=== PATIENT | male | born 1940 | race Caucasian/White ===

== ENCOUNTER → 2016-07-22 | Outpatient (CLI) | payer MEDICARE, BC ==
--- NOTE | 2016-07-22 15:35 | CT ---
EXAM DESCRIPTION: Chest w/Contrast CLINICAL HISTORY: 75 years, Male, PULMONARY NODULE COMPARISON: December 11, 2015 TECHNIQUE: Thin-section axial CT images are obtained during rapid bolus administration of nonionic IV contrast media. Reconstructed MPR images are created and reviewed as well. This exam was performed according to our departmental dose-optimization program, which includes automated exposure control, adjustment of the mA and/or kV according to patient size and/or use of iterative reconstruction technique. FINDINGS: Follow-up examination with contrast enhancement shows a stable appearance of the right lung with a persistent 7 mm upper lobe nodule with an adjacent 2 mm anteriorly positioned right middle lobe nodule. Two additional tiny right lower lobe pulmonary nodule subpleural at the posterior lung base in retrospect are unchanged from prior study. 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 No new pulmonary nodules or dominant masses or acute inflammatory changes are evident. Mild subpleural atelectatic or scarring changes at the posterior lung bases is evident. Moderate retrocardiac hiatal hernia is present. Small shotty middle mediastinal lymphadenopathy and aorticopulmonary window lymphadenopathy is unchanged from previous December examination and nonspecific. Heart size is normal without pericardial effusion and no specific abnormality in the upper abdomen is noted. Moderate levoscoliosis and degenerative changes within the spine are noted. Axillary regions are unremarkable. No bony destructive changes are seen. IMPRESSION: 1. Stable 7 mm nodule right upper lobe anteriorly, unchanged from prior study. Additional small nodules in the right middle and right lower lobe are 2 mm or less and no new abnormalities are noted. 2. Shotty middle mediastinal lymphadenopathy essentially stable and unchanged from prior study. 3. Moderately large hiatal hernia and degenerative changes and scoliosis of the lumbar spine. Electronically signed by: Brandon James MD 07/22/2016 3:35 PM CDT
== END | disposition home or self-care (01) ==
LOC: CT 07:54
PROVIDERS: ATTEND Family Medicine
DX: R91.1 Solitary pulmonary nodule (principal)

== ENCOUNTER → 2016-08-26 | Outpatient (CLI) | payer MEDICARE, BC | END | disposition home or self-care (01) | LOC: GMAB 10:46 | PROVIDERS: ATTEND Family Medicine | DX: Z12.5 Encounter for screening for malignant neoplasm of prostate (principal); I10 Essential (primary) hypertension | CPT/HCPCS: 84443; G0103 ==

== ENCOUNTER → 2016-12-16 | Outpatient (CLI) | payer MEDICARE, BC ==
--- NOTE | 2016-12-16 09:24 | RAD ---
EXAM DESCRIPTION: Ankle,Right 3 Views CLINICAL HISTORY: 76 years, Male, CLOSED FX OF DISTAL FIBULA COMPARISON: FINDINGS: Osteopenia bones. Transverse fracture distal tibia metaphysis region about 2 cm above the ankle joint. No significant displacement. Some sclerosis around the fracture indicating ongoing healing. Additionally impacted fracture distal fibula about 3.4 cm from the tip. Slight lateral subluxation. Some periosteal reaction around the fracture laterally and posteriorly. Old avulsion injury of the lateral malleolus present about 3.5 mm. Soft tissue swelling laterally around the ankle. Large plantar heel spur. Some calcification of the plantar fascia also noted. IMPRESSION: Healing fractures of the distal tibia and fibula without significant displacement. Continued follow-up recommended. Electronically signed by: Oscar Bobo MD 12/16/2016 9:22 AM CDT
== END | disposition home or self-care (01) ==
LOC: RAD 07:55
PROVIDERS: ATTEND Orthopaedic Surgery
DX: S89.391D Other physeal fracture of lower end of right fibula, subsequent encounter for fracture with routine healing (principal); X58.XXXA Exposure to other specified factors, initial encounter

== ENCOUNTER → 2017-01-13 | Outpatient (CLI) | payer MEDICARE, BC ==
--- NOTE | 2017-01-14 06:39 | RAD ---
Procedure: 3 View right Ankle Exam date: 01/13/2017 7:56 AM [facility] Ordering: SCOUT BERTRAND Clinical Indication: Ankle fracture Comparison: 12/16/2016 FINDINGS: Diffuse osteopenia. Continued osseous healing of the distal right tibial and fibular fracture with callus formation. Thin fracture cleft still remains. No new fractures or subluxations. There is mild lateral angulation of the distal fracture fragments. No soft tissue abnormality. IMPRESSION: 1. Continued healing fractures of the distal right tibia and fibula without other new fracture or significant change. Electronically signed by: Malcom Joshi MD 01/14/2017 6:37 AM [facility]
== END | disposition home or self-care (01) ==
LOC: RAD 07:55
PROVIDERS: ATTEND Orthopaedic Surgery
DX: S89.391D Other physeal fracture of lower end of right fibula, subsequent encounter for fracture with routine healing (principal)

== ENCOUNTER → 2017-05-11 | Outpatient (CLI) | payer MEDICARE | LOC: GMAB 14:42 | PROVIDERS: ATTEND Family Medicine | DX: M25.531 Pain in right wrist (principal) ==

== ENCOUNTER → 2017-09-19 | Outpatient (CLI) | payer MEDICARE | LOC: GMAE 12:02 | PROVIDERS: ATTEND Family Medicine | DX: I10 Essential (primary) hypertension (principal) ==

== ENCOUNTER → 2017-12-14 | Outpatient (CLI) | payer MEDICARE ==
--- NOTE | 2017-12-14 10:58 | MRI ---
MRI arthrogram right shoulder INDICATION: Shoulder pain bursitis initial encounter TECHNIQUE: MR arthrogram sequences right shoulder following gadolinium arthrography FINDINGS: There is medial dislocation long head bicep into the interstitium of the subscapularis. Extensive delaminating subscapularis tear related to this. Mild AC joint osteoarthrosis with os acromiale. Mild edema at the interface of the os. Full-thickness retracted tear supraspinatus tendon retracted to the mid humeral head level. Diffuse bursal contrast extension Mild diffuse degeneration glenoid labrum with mild glenohumeral osteoarthrosis. Chondral thinning in the inferior glenohumeral joint grade 3-4. Mild synovitis/debris in the axillary recess. Thinning and chronic partial tear of the infraspinatus with mild edema in the posterior lateral humerus bare area. Generalized muscle atrophy up to grade 4 in the subscapularis with grade 2-3 changes supraspinatus and infraspinatus IMPRESSION: Full-thickness retracted tear supraspinatus tendon retracted to the mid humeral head level High-grade delaminating tear subscapularis with medial dislocation long head bicep interstitial Chronic partial tear infraspinatus Os acromiale and mild AC joint osteoarthrosis. Generalized muscle atrophy up to grade 4 subscapularis Labral degeneration and mild glenohumeral osteoarthrosis Electronically signed by: Wali Hernandez MD 12/14/2017 10:56 AM CDT
--- NOTE | 2017-12-14 21:56 | RAD ---
EXAM DESCRIPTION: Arthrogram Shoulder Right: RF. CLINICAL HISTORY: BURSITIS COMPARISON: Post-arthrogram MRI scan of the right shoulder same date. TECHNIQUE: The procedure was explained to the patient with risks and benefits. The patient gave verbal and written consent. Patient supine on the fluoroscopic table with right shoulder in external rotation. The anterior mid superior right glenohumeral joint was localized by fluoroscopy. The skin was marked, then prepped and draped in a sterile fashion. 1% xylocaine, given intradermally and intramuscularly. 5 cc of nonionic contrast was prepared in a syringe. A mixture of 10 cc nonionic contrast, 10 cc of sterile normal saline and 0.1% gadolinium was prepared in a second syringe. A 3-cm, 25-ga. needle was introduced into the anterior superior right glenohumeral joint capsule under fluoroscopic visualization. A test injection of right cc of the contrast only was performed under fluoroscopy. Additional 8 cc of the contrast mixture was then injected under fluoroscopy. The patient tolerated the procedure well. Passive exercise was performed. Patient was transferred to the high field MRI suite for multiplanar imaging. No immediate complications. Fluoroscopy time was 0.6. DAP less than 1.6 Gy-cm2. Single frontal image of the right shoulder in external rotation was obtained. IMPRESSION: Successful, fluoroscopic-guided arthrogram of the right shoulder prior to MRI scan. No complications. Permanent images from this procedure are maintained in the patient's medical record. Electronically signed by: Bassem Leach MD 12/14/2017 9:54 PM CDT
== END ==
LOC: MRI 09:00
PROVIDERS: ATTEND Family Medicine
DX: M75.51 Bursitis of right shoulder (principal); S46.011A Strain of muscle(s) and tendon(s) of the rotator cuff of right shoulder, initial encounter; M19.011 Primary osteoarthritis, right shoulder

== ENCOUNTER 2018-05-05 16:42 | Emergency (ER) | payer MEDICARE ==
[2018-05-05] MEDS ORDERED: SODIUM CHLORIDE 0.9% 1000ML 1,000 ML IVS PRN (17:43)
--- NOTE | 2018-05-05 17:44 | ED.PDOC ---
History of Present Illness - General Chief Complaint: General Stated Complaint: Weakness w/vomiting and diarrhea Time Seen by Provider: 05/05/18 17:41 Source: patient Exam Limitations: no limitations - History of Present Illness Initial Comments: Salvador Conn 77 y/o male stated that she had 3 loose watery stool with vomiti.ng this morning and had been feeling weak.No blood in stool.No ill contact no recent antibiotic use.On arrival at ER no vomiting noted. Timing/Duration: 4-6 hours Severity: moderate Improving Factors: nothing Worsening Factors: nothing Associated Symptoms: other - see hpi Allergies/Adverse Reactions: Allergies NO KNOWN ALLERGY Allergy (Verified 06/24/12 13:41) Home Medications: Ambulatory Orders Atorvastatin Calcium [Lipitor] 10 mg PO DAILY 08/01/13 Fexofenadine-Pseudoephedrine [Stefanie-D 24 Hour Allergy 180-240 mg] 1 tab PO DAILY 08/01/13 Finasteride [Proscar] 5 mg PO DAILY 08/01/13 Lisinopril & Hydrochlorothiazi [Lisinopril/Hydrochlorothi 10-12.5 mg] 1 tab PO DAILY 08/01/13 Meloxicam [Mobic] 7.5 mg PO DAILY 08/01/13 Metoprolol Tartrate [Lopressor] 50 mg PO TID 08/01/13 Mometasone Furoate Nasal [place] [Nasonex Nasal [place]] 17 gm SHANTELL DAILY 08/01/13 Terazosin [Hytrin] 5 mg PO DAILY 08/01/13 Tramadol HCl 50 mg PO PRN 08/01/13 Review of Systems - Review of Systems EENTM: States: no symptoms reported Respiratory: States: no symptoms reported Cardiology: States: no symptoms reported Gastrointestinal/Abdominal: States: see HPI, diarrhea, vomiting Genitourinary: States: no symptoms reported Skin: States: no symptoms reported Neurological: States: no symptoms reported Endocrine: States: no symptoms reported Past Medical History (General) - Patient Medical History Hx Stroke: No Hx Asthma: No - Seasonal allergies; does use a CPAP at night for sleep apnea Hx Congestive Heart Failure: No Hx Hypertension: Yes Hx Diabetes: No Hx Cancer: Yes - Peyrones disease Surgical History: cholecystectomy, other - c-spine - Vaccination History Hx Influenza Vaccination: Yes - 2018 Hx Pneumococcal Vaccination: Yes Immunizations Up to Date: Yes - Social History Hx Tobacco Use: Yes - Quit 1974 Hx Alcohol Use: No Hx Substance Use: No Hx Physical Abuse: No Hx Emotional Abuse: No - Activities of Daily Living Patient Lives Alone: No Grooming Ability: Independent Eating (Feeding) Ability: Independent Toileting Ability: Independent Family Medical History - Family History Father Living Status: Cause of : old age Hx Family Asthma: Yes - sister Hx Family Diabetes: Yes - mom Physical Exam - Physical Exam General Appearance: Alert, Comfortable, No apparent distress Eye Exam: bilateral normal Ears, Nose, Throat: hearing grossly normal, normal ENT inspection, normal pharynx Neck: non-tender, full range of motion, supple, normal inspection Respiratory: chest non-tender, lungs clear, normal breath sounds, no respiratory distress Cardiovascular/Chest: normal peripheral pulses, regular rate, rhythm, no murmur Peripheral Pulses: radial,right: 2+, radial,left: 2+ Gastrointestinal/Abdominal: non tender, soft, no organomegaly Back Exam: no CVA tenderness, no vertebral tenderness Neurologic: alert, oriented x 3 Skin Exam: normal color, warm/dry Progress - Progress Progress: 05/05/18 20:44 Vital Signs - 8 hr 05/05/18 05/05/18 17:14 19:46 Temperature 99.8 F H 99.8 F H Pulse Rate [ 61 74 Left Radial] Respiratory 20 18 Rate Blood Pressure 142/64 106/54 [Left Arm] O2 Sat by Pulse 98 95 Oximetry - Results/Orders Results/Orders: 05/05/18 17:43 IV Care:Saline Lock per Protoc QSHIFT Sodium Chloride 0.9% 1000ML [Ns 1000 ml] 1,000 ml IVS .QD URINALYSIS Stat Laboratory Results - last 24 hr 05/05/18 05/05/18 18:04 18:04 WBC 8.3 RBC 5.22 Hgb 15.3 Hct 47.1 MCV 90.4 MCH 29.4 MCHC 32.6 L RDW 14.7 H Plt Count 171 MPV 9.3 Absolute Neuts (auto) 7.50 H Absolute Lymphs (auto) 0.40 L Absolute Monos (auto) 0.40 Absolute Eos (auto) 0.00 Absolute Basos (auto) 0.00 Neutrophils % 90.2 H Lymphocytes % 4.6 L Monocytes % 4.8 Eosinophils % 0.1 L Basophils % 0.3 PT 15.4 H INR 1.55 H PTT (SP) 30.6 Sodium 135 Potassium 3.6 Chloride 101 Carbon Dioxide 22 Anion Gap 15.6 BUN 18 Creatinine 0.95 BUN/Creatinine Ratio 18.9 Random Glucose 110 H Serum Osmolality 272.6 L Lactic Acid 1.6 Calcium 8.0 L Magnesium 1.9 Total Bilirubin 1.2 H Direct Bilirubin 0.3 H Indirect Bilirubin 0.9 H AST 27 ALT 28 Alkaline Phosphatase 85 Creatine Kinase 58 CK-MB (CK-2) 1.0 CK-MB (CK-2) % Not Reportable Troponin I < 0.02 Serum Total Protein 6.8 Albumin 3.8 Lipase 27 Discuss test result with patient Departure - Departure Clinical Impression: Gastroenteritis Time of Disposition: 20:45 Disposition: Discharge to Home or Self Care Departure Forms: ED Discharge - Pt. Copy, Patient Portal Self Enrollment Instructions: Viral Gastroenteritis, Adult (DC), Viral Gastroenteritis, [place] Diet Diet: bland diet Referrals: JONATHAN CARR MD [Primary Care Provider] - 1-2 Weeks Home Medications: Ambulatory Orders Atorvastatin Calcium [Lipitor] 10 mg PO DAILY 08/01/13 Fexofenadine-Pseudoephedrine [Stefanie-D 24 Hour Allergy 180-240 mg] 1 tab PO DAILY 08/01/13 Finasteride [Proscar] 5 mg PO DAILY 08/01/13 Lisinopril & Hydrochlorothiazi [Lisinopril/Hydrochlorothi 10-12.5 mg] 1 tab PO DAILY 08/01/13 Meloxicam [Mobic] 7.5 mg PO DAILY 08/01/13 Metoprolol Tartrate [Lopressor] 50 mg PO TID 08/01/13 Mometasone Furoate Nasal [place] [Nasonex Nasal [place]] 17 gm SHANTELL DAILY 08/01/13 Terazosin [Hytrin] 5 mg PO DAILY 08/01/13 Tramadol HCl 50 mg PO PRN 08/01/13 Additional Instructions: No SPICY or GREASY foods until better;Return to ER as needed
[2018-05-05] MEDS ORDERED: ONDANSETRON INJ 4 MG/2 ML VIAL IV ONE (19:38)
[2018-05-05 19:48] VITALS: O2SAT 95
[2018-05-05 21:33] VITALS: BP 158/93; TEMP 98.9
== END 2018-05-05 21:00 | disposition home or self-care (01) ==
LOC: ER 16:42
DX: K52.9 Noninfective gastroenteritis and colitis, unspecified (principal); I10 Essential (primary) hypertension; Z87.891 Personal history of nicotine dependence; Z90.49 Acquired absence of other specified parts of digestive tract; Z79.899 Other long term (current) drug therapy
CPT/HCPCS: 36415; 80048; 80076; 82550; 82553; 83605; 83690; 84484; 85025; 85610; 85730; J2405; J7030

== ENCOUNTER 2018-05-20 13:48 | Observation (INO) | payer MEDICARE ==
--- NOTE | 2018-05-20 14:06 | ED.PDOC ---
History of Present Illness - General Chief Complaint: General Stated Complaint: right knee pain Time Seen by Provider: 05/20/18 13:53 Source: patient Exam Limitations: no limitations - History of Present Illness Initial Comments: Salvador Conn 77 y/o male came to ER with pain on his right knee since 0230H early this am.Stated unable to move because of sharp stabbing pain on his right knee which gradually got worse.Denies injury to knee;Denies weakness but due to pain hard to move. Timing/Duration: constant, other - 12 hours Severity: moderate Improving Factors: rest Worsening Factors: movement Allergies/Adverse Reactions: Allergies NO KNOWN ALLERGY Allergy (Verified 06/24/12 13:41) Home Medications: Ambulatory Orders Atorvastatin Calcium [Lipitor] 10 mg PO DAILY 08/01/13 Fexofenadine-Pseudoephedrine [Stefanie-D 24 Hour Allergy 180-240 mg] 1 tab PO DAILY 08/01/13 Finasteride [Proscar] 5 mg PO DAILY 08/01/13 Lisinopril & Hydrochlorothiazi [Lisinopril/Hydrochlorothi 10-12.5 mg] 1 tab PO DAILY 08/01/13 Mometasone Furoate Nasal [place] [Nasonex Nasal [place]] 17 gm SHANTELL DAILY 08/01/13 Terazosin [Hytrin] 5 mg PO DAILY 08/01/13 Tramadol HCl 50 mg PO PRN 08/01/13 Allopurinol 300 mg PO DAILY 05/20/18 Apixaban [Eliquis] 5 mg PO BID 05/20/18 Pregabalin [Lyrica] 50 mg PO TID 05/20/18 Review of Systems - Review of Systems Constitutional: States: no symptoms reported EENTM: States: no symptoms reported Respiratory: States: no symptoms reported Cardiology: States: no symptoms reported Musculoskeletal: States: see HPI, joint pain, joint swelling Neurological: States: no symptoms reported Past Medical History (General) - Patient Medical History Hx Stroke: No Hx Asthma: No - Seasonal allergies; does use a CPAP at night for sleep apnea Hx Cardiac Disorders: Yes - a.fib Hx Congestive Heart Failure: No Hx Hypertension: Yes Hx Diabetes: No Hx Cancer: Yes - Peyrones disease Surgical History: cholecystectomy, other - c-spine,penile prosthesis - Vaccination History Hx Influenza Vaccination: Yes - 2018 Hx Pneumococcal Vaccination: Yes - Social History Hx Tobacco Use: Yes - Quit 1974 Hx Alcohol Use: No Hx Substance Use: No Hx Physical Abuse: No Hx Emotional Abuse: No Family Medical History - Family History Father Living Status: Cause of : old age Hx Family Asthma: Yes - sister Hx Family Diabetes: Yes - mom Physical Exam - Physical Exam General Appearance: Alert, Anxious, Comfortable, No apparent distress Eye Exam: bilateral normal Ears, Nose, Throat: hearing grossly normal, normal ENT inspection, normal pharynx Neck: supple, normal inspection Respiratory: lungs clear, normal breath sounds, no respiratory distress Cardiovascular/Chest: normal peripheral pulses, regular rate, rhythm, no murmur Peripheral Pulses: radial,right: 2+, radial,left: 2+ Gastrointestinal/Abdominal: non tender, soft, no organomegaly Back Exam: no CVA tenderness, no vertebral tenderness Extremity: no pedal edema, no calf tenderness, other - ROM painful right knee and suprapatellar swelling Neurologic: alert, oriented x 3 Progress - Progress Progress: 05/20/18 14:11 Vital Signs - 8 hr 05/20/18 14:06 Temperature 100.6 F H Pulse Rate [ 77 Right Brachial] Respiratory 20 Rate Blood Pressure 140/67 [Right Arm] O2 Sat by Pulse 96 Oximetry 05/20/18 17:04 RIGHT KNEE JOINT-cleanse with propyl alcohol and Betadine then Joint fluid aspiration done right suprapatellar bursa obtaining 16-20 cc of coffe brown joint fluid sent for analysis - Results/Orders Results/Orders: 05/20/18 15:52 URIC ACID, SYNOVIAL FLUID Stat CRYSTALS,SYNOVIAL FLUID Stat SYNOVIAL FLUID WBC Stat 05/20/18 15:53 BODY FLUID CULTURE Stat 05/20/18 15:54 TOTAL PROTEIN,SYNOVIAL FLD Stat 05/20/18 16:00 Vancomycin HCl Inj 1,000 mg Vancomycin HCl Inj 500 mg Sodium Chloride 0.9% 250Ml [NS 250ml] 250 ml IVPB ONCE 05/20/18 16:01 levoFLOXacin 500MG IV [Levaquin 500MG IV] 500 mg Premix Bag 1 bag IVPB ONCE 05/20/18 16:02 BLOOD CULTURE Stat Laboratory Results - last 24 hr 05/20/18 05/20/18 14:35 14:35 WBC 13.2 H RBC 5.27 Hgb 15.1 Hct 47.4 MCV 90.0 MCH 28.7 MCHC 31.9 L RDW 14.9 H Plt Count 197 MPV 9.4 Absolute Neuts (auto) 11.00 H Absolute Lymphs (auto) 1.00 Absolute Monos (auto) 1.10 H Absolute Eos (auto) 0.00 Absolute Basos (auto) 0.10 Neutrophils % 83.7 H Lymphocytes % 7.2 L Monocytes % 8.4 Eosinophils % 0.2 L Basophils % 0.5 Sodium 134 L Potassium 4.3 Chloride 100 L Carbon Dioxide 24 Anion Gap 14.3 BUN 17 Creatinine 0.98 BUN/Creatinine Ratio 17.3 Random Glucose 134 H Serum Osmolality 271.8 L Uric Acid 4.7 Calcium 9.1 Total Bilirubin 1.0 AST 35 ALT 31 Alkaline Phosphatase 83 Serum Total Protein 7.3 Albumin 3.9 Globulin 3.4 Albumin/Globulin Ratio 1.1 Discuss all test results with patient - EKG/XRAY/CT XRAY: knee - small joint effusion Departure - Departure Clinical Impression: History of chronic atrial fibrillation Acute knee pain Qualifiers: Laterality: right Qualified Code(s): M25.561 - Pain in right knee Septic arthritis of knee, right Qualifiers: Septic arthritis organism: due to unspecified organism Qualified Code(s): M00.9 - Pyogenic arthritis, unspecified Time of Disposition: 17:10 Disposition: Admit Patient Condition: Fair Departure Forms: Patient Portal Self Enrollment Referrals: JONATHAN CARR MD [Primary Care Provider] - 1-2 Weeks Home Medications: Ambulatory Orders Atorvastatin Calcium [Lipitor] 10 mg PO DAILY 08/01/13 Fexofenadine-Pseudoephedrine [Stefanie-D 24 Hour Allergy 180-240 mg] 1 tab PO DAILY 08/01/13 Finasteride [Proscar] 5 mg PO DAILY 08/01/13 Lisinopril & Hydrochlorothiazi [Lisinopril/Hydrochlorothi 10-12.5 mg] 1 tab PO DAILY 08/01/13 Mometasone Furoate Nasal [place] [Nasonex Nasal [place]] 17 gm SHANTELL DAILY 08/01/13 Terazosin [Hytrin] 5 mg PO DAILY 08/01/13 Tramadol HCl 50 mg PO PRN 08/01/13 Allopurinol 300 mg PO DAILY 05/20/18 Apixaban [Eliquis] 5 mg PO BID 05/20/18 Pregabalin [Lyrica] 50 mg PO TID 05/20/18 Decision To Admit - Decistion To Admit Decision to Admit Reason: Admit from ER Decision to Admit Date: 05/20/18 - Dr. Bond-Hospitalist Decision to Admit Time: 17:11
--- NOTE | 2018-05-20 14:30 | RAD ---
EXAM DESCRIPTION: XR Knee, right 2 or More Views CLINICAL HISTORY: 77 years Male, pain COMPARISON: None. FINDINGS: 2 view radiographs of the right knee demonstrate no evidence of acute fracture or dislocation or destructive bony lesion. There is relative narrowing of the medial tibiofemoral joint margin compared to the lateral compartment and more pronounced narrowing of the patellofemoral joint. [place] bony density in the upper pretibial region is consistent with an old unfused ossification center. There is slight soft tissue fullness in the suprapatellar region. Joint effusion is not excluded, but not a definite finding. IMPRESSION: No acute bony abnormality identified. Degenerative changes, mainly at the patellofemoral joint. Small effusion difficult to exclude. Electronically signed by: Kev Adams MD 05/20/2018 2:27 PM CDT
[2018-05-20] MEDS ORDERED: MORPHINE SULFATE INJ 10 MG/ML VIAL IV ONE ×2 (15:23→16:54)
[2018-05-20] MEDS ORDERED: BACLOFEN 10 MG TAB PO ONE (15:23)
[2018-05-20] MEDS ORDERED: LIDOCAINE 1% 10 ML VIAL INJ ONE (15:31)
[2018-05-20] MEDS ORDERED: VANCOMYCIN HCL INJ 1,000 MG, VANCOMYCIN HCL INJ 500 MG in SODIUM CHLORIDE 0.9% 250ML 25... IVPB ONE (16:00)
[2018-05-20] MEDS ORDERED: levoFLOXacin 500MG IV 500 MG in PREMIX BAG 1 BAG IVPB ONE (16:01)
[2018-05-20] MEDS ORDERED: levoFLOXacin 500MG IV 100 ML IVPB ONE (16:03)
[2018-05-20] MEDS ORDERED: VANCOMYCIN HCL INJ 1,000 MG VIAL IVPB ONE (17:12)
[2018-05-20] MEDS ORDERED: VANCOMYCIN HCL INJ 500 MG VIAL ONE (17:12)
[2018-05-20] MEDS ORDERED: SODIUM CHLORIDE 0.9% 250ML 250 ML ONE (17:13)
--- NOTE | 2018-05-20 17:47 | HP ---
0HIEF COMPLAINT: Severe right knee pain started this morning. HISTORY OF PRESENT ILLNESS: The patient is a 77 year-old male who presented to the E. [facility] with his daughter after having an acute onset of right knee pain in the middle of the night approximately 0230. He tried to walk to the restroom at that time and could hardly move because of the right knee pain. Throughout the rest of the morning the pain got worse to the point where he could not bear weight or hardly bend the knee without severe pain. He denies any fever or chills throughout the night or this morning. The patient denies any accidental fall, tripping, or any trauma to the right knee. Of significance, he is being treated for chronic atrial fibrillation with Eliquis. He has never had a problem with joint pains quite like this in the past. He does have a history of gout currently on Allopurinol, and he denies ever having any gout attack in his knees. Workup in the E. R. consisted of a white blood cell count that is mildly elevated at 13.2 with a normal hemoglobin and hematocrit. The right knee was aspirated by the E. [facility]. doctor and per verbal report the doctor endorsed that the aspirate was a dark brown, watery consistency. No overt purulence could be seen or found and no bright red blood was found either. He sent this for culture and started the patient on vancomycin and Levaquin at approximately 5:00 PM. Hospitalist was called for admission for observation while awaiting synovial fluid cultures. REVIEW OF SYSTEMS: GENERAL: Patient in acute distress given his right knee pain, otherwise conversing normally. CHEST: Patient denies shortness of breath, denies cough. CARDIO: Denies any chest pain or chest wall pain. ABDOMEN: Denies any abdominal pain. Normal bowel movement the day prior with normal consistency. NEUROLOGIC: Denies confusion. Denies any headache. EXTREMITIES: Severe right knee pain. He endorses no other problems with joints. SKIN: Diffuse and sporadic skin changes seen with the elderly and slight bruising. PAST MEDICAL HISTORY: 1. Benign prostatic hypertrophy. 2. Hypertension 3. Chronic atrial fibrillation on Eliquis. 4. History Peyronie's disease with implantation. PAST SURGICAL HISTORY: 1. Cholecystectomy. 2. Cervical spine. 3. Penile implantation. CURRENT MEDICATIONS: 1. Allopurinol 300 mg tab daily. 2. Eliquis 5 mg p.o. b.i.d. 3. Atorvastatin 10 mg p.o. daily. 4. Finasteride 5 mg p.o. daily. 5. Lisinopril/HCTZ 10-12.5 mg tablet 1 tab p.o. daily. 6. Lyrica 50 mg capsule p.o. t.i.d. 7. Terazosin 5 mg capsule p.o. daily. 8. Tramadol 50 mg tab p.o. p.r.n. daily. ALLERGIES: SOCIAL HISTORY: Smoked tobacco from teens until 1974, has not smoked since then. PHYSICAL EXAMINATION: VITAL SIGNS: Temperature 100.6 degrees Fahrenheit, pulse 82, blood pressure 140/79, respirations 20, O2 saturation 96% on room air. GENERAL: Patient lying in bed in slight acute distress given his right knee pain, especially when moving it. Able to converse normally and give a full detailed history. CHEST: Lungs are clear to auscultation. No cough or wheezes. CARDIOVASCULAR: Normal rate and rhythm, split ST with inspirations, no peripheral edema. ABDOMEN: Soft, non-tender. Slightly large girth without ascites. EXTREMITIES: Right knee with obvious swelling and effusion greater than the left knee, small minimally oozing puncture site from joint aspiration on the lateral right side of the knee, tender to palpation, not warm to the touch, no erythema appreciated on the right knee. Moving toes normally. Sensation is normal throughout all extremities. NEUROLOGIC: Alert and oriented to person, place, and time. No focal deficits. Cranial nerves intact. LABORATORY: WBCs 13.2, hemoglobin/hematocrit 15.1/47.4, platelet count 197, RDW is slightly elevated at 14.9. Sodium 134, potassium 4.3, chloride 100, carbon dioxide 24, BUN/creatinine 17/0.98. AST/ALT/alkaline phosphatase within normal limits. Total bilirubin 1.0 Urinalysis: Has trace intact blood, otherwise negative. Synovial total cell count pending. MICROBIOLOGY: Synovial fluid culture from the right knee pending. Blood cultures times 2 pending. IMAGING: Right knee x-ray 05/20/18: "No acute bony abnormality identified, degenerative changes seen, mainly at the patellofemoral joint. Small effusion difficult to exclude." ASSESSMENT: 1. Severe right knee pain, right knee septic arthritis versus acute gout flare versus hemarthrosis with inflammatory changes. 2. Fever, likely related to #1. 3. Chronic benign prostatic hypertrophy. 4. Hypertension. 5. Chronic atrial fibrillation on Eliquis. 6. History of Peyronie's disease. 7. Chronic gout on Allopurinol. PLAN: Mr. Conn will be admitted in pursuit of antibiotic treatment and to await aspiration culture results from his right knee. Will treat his severe pain with IV pain medication for now, transition to p.o. once we have a more stable control of pain. We will continue antibiotics given in the E. R., consisting of vancomycin and Levaquin. I have an ESR and a CRP pending at this time, this will help give criteria for potential septic arthritis of the right knee. Depending on the culture results and blood cell counts of the right knee aspirate, there is a possibility we will have to consult orthopedics to evaluate the tests for any type of arthroscopy or other intervention. Regarding DVT prophylaxis, we are just going to continue his Eliquis at this time. His knee aspirate did not have bright red blood, so bleeding into the joint is very unlikely. The patient is not able to tolerate SCDs to his lower extremity at this time. The patient is a DNR, him and the daughter confirm that DNR paperwork has been scanned into the [facility] EHR at some point in the past. [facility][id number] [facility]
[2018-05-20] MEDS: IV SET AND CAP CHANGE INJ INJ SCH (19:03)
[2018-05-20] MEDS ORDERED: APIXABAN 2.5 MG TAB PO ONE (20:06)
[2018-05-20] MEDS ORDERED: PREGABALIN 25 MG CAP ONE (20:07)
[2018-05-20] MEDS: MORPHINE SULFATE INJ 10 MG/ML VIAL IV PRN (21:00)
[2018-05-20] MEDS ORDERED: NON-FORMULARY MEDICATION 1 EA MIS (Apixaban [Eliquis] 5 MG) PO SCH (21:00)
[2018-05-20] MEDS ORDERED: NON-FORMULARY MEDICATION 1 EA MIS (Pregabalin [Lyrica] 50 MG) PO SCH (21:00)
[2018-05-20] MEDS: SODIUM CHLORIDE 0.9% (FLUSH) 10 ML SYG IV PRN (21:01)
[2018-05-21] MEDS: MORPHINE SULFATE INJ 10 MG/ML VIAL IV PRN (07:58)
[2018-05-21] MEDS ORDERED: COLCHICINE 0.6 MG TAB PO ONE (08:31)
[2018-05-21] MEDS ORDERED: methylPREDNISolone SODIUM SUC 125 MG/2 ML VIAL IV ONE (08:36)
[2018-05-21] MEDS: PREGABALIN 25 MG CAP PO SCH ×3 (08:55→20:44)
[2018-05-21] MEDS: FINASTERIDE 5 MG TAB PO SCH (08:55)
[2018-05-21] MEDS: LISINOPRIL 10 MG TAB PO SCH (08:56)
[2018-05-21] MEDS: hydroCHLOROthiazide 12.5 MG CAP PO SCH (08:56)
[2018-05-21] MEDS ORDERED: NON-FORMULARY MEDICATION 1 EA MIS (Lisinopril & Hydrochlorothiazi [Lisinopril/Hctz 10-12.5 PO SCH (09:00)
[2018-05-21] MEDS ORDERED: APIXABAN 2.5 MG TAB PO SCH (09:00)
[2018-05-21] MEDS ORDERED: TERAZOSIN 5 MG CAP PO SCH (09:00)
[2018-05-21] MEDS: SODIUM CHLORIDE 0.9% (FLUSH) 10 ML SYG IV PRN ×2 (09:04→20:44)
[2018-05-21] MEDS ORDERED: SODIUM CHLORIDE 0.9% 500ML 500 ML ONE ×4 (09:43→19:31)
[2018-05-21] MEDS ORDERED: VANCOMYCIN HCL INJ 1,000 MG VIAL IVPB ONE ×3 (09:43→19:32)
[2018-05-21] MEDS: VANCOMYCIN HCL INJ 1,750 MG in SODIUM CHLORIDE 0.9% 500ML 500 ML IVPB SCH ×2 (09:56→20:44)
[2018-05-21] MEDS: COLCHICINE 0.6 MG TAB PO SCH ×2 (11:07→20:44)
[2018-05-21] MEDS ORDERED: POVIDONE IODINE 10 % 15 ML UD TOP ONE (11:41)
--- NOTE | 2018-05-21 12:15 | PN ---
DATE: 05/21/18 SUBJECTIVE: The patient said he did somewhat okay overnight, still having fluctuating right knee pain. The pain in the knee is still exacerbated by movement and anytime he tries to move in the bed. He does endorse having some low back soreness from lying in bed and having to cater to his knee. The patient and his daughter endorse that the knee looks about the same as yesterday, no worse or any better. No other problems per the patient or the family. REVIEW OF SYSTEMS: GENERAL: Patient in very mild distress regarding right knee pain, conversing normally. CHEST: Denies shortness of breath, denies any cough. CARDIO: Denies any chest pain, no palpitations, no peripheral swelling. ABDOMEN: No abdominal pain, no bowel movements since admission, has a slight urge. GENITOURINARY: Salguero in place, no penile or suprapubic pain. NEUROLOGIC: No confusion, no headaches. EXTREMITIES: Right knee pain, all other extremities normal. OBJECTIVE: VITALS: T max overnight of 100.0 down to 99.6, heart rate 67, blood pressure 150/82, respirations 16, O2 saturation 96% on room air. PHYSICAL EXAM: GENERAL: Patient lying in bed in no distress until he moves his knee, conversing normally in good spirits. CHEST: Lungs are clear to auscultation, no crackles or wheezes. CARDIO: Slight irregular rhythm, no murmurs, no peripheral edema. ABDOMEN: Soft but slightly large, no masses, no tenderness. EXTREMITIES: Right knee with stable diffuse swelling, more tender around the joint spaces to both sides of the inferior patella, very minimal warmth or redness to the skin, nonbleeding puncture site from synovial fluid aspiration on the lateral side of the knee approximately 4 cm cephalic from the knee joint itself, moving all extremities normally aside from the right knee with pain. NEUROLOGIC: Alert and oriented to person, place, and time, no focal deficits. LABORATORY: WBCs 13.2 to 12.1, hemoglobin/hematocrit 15.4/47.6, platelet count 182, ESR 46, CRP 2.1. Sodium 135, potassium 3.8, chloride 101, carbon dioxide 23, BUN/creatinine 14/0.97, calcium normal at 8.8. Synovial fluid total cell count still pending. MICROBIOLOGY: Blood cultures negative preliminary times 2, synovial fluid culture still pending. ASSESSMENT: 1. Severe right knee pain, right knee septic arthritis versus acute gout flare versus hemarthrosis with inflammatory changes. 2. Fever, likely related to #1, resolving. 3. Chronic benign prostatic hypertrophy. 4. Chronic hypertension. 5. Chronic atrial fibrillation on Eliquis. 6. History of Peyronie's disease. 7. Chronic gout on Allopurinol. PLAN: Mr. Conn has been receiving IV vancomycin and Levaquin regarding potential septic arthritis, while his aspirate is being cultured and analyzed. We are very cautious with using the Eliquis and causing any further bleeding into the knee, if that was the initial culprit. Eliquis held as of 05/21. Given his pain, we have consulted Dr. Pitt, orthopedics, to have a look at the knee and decide whether new aspiration or other measure would be beneficial at this time. He proceeded to aspirate the knee, and obtained two large syringes full of serosanguinous fluid with white particles throughout the fluid. Sent for Culture, GS, and cytology. Given this, Gout is at the top of the differential, but cant ignore other possibilities yet. The differential still includes septic arthritis, acute gout flare, or inflammatory changes from hemarthrosis in an anticoagulated patient. The patient still has a Salguero in place due to his inability to get up and walk and knee pain on admission. I ordered physical therapy, if they deem him safe and okay to at least use a bedside urinal, I will have the Salguero removed today. Patient was given colchicine, as well as solumedrol, he can have another dose of solumedrol the AM. #[id number] [facility]
--- NOTE | 2018-05-21 12:58 | CONS ---
DATE OF CONSULTATION: 05/21/18 CHIEF COMPLAINT: Right knee pain. HISTORY OF PRESENT ILLNESS: Mr. Conn is a 77 year-old male with a history of severe knee pain that was acute in onset and happened on the day of presentation about 2:00 AM. Mr. Conn has a history of gout for which he had been undergoing treatment. Mr. Conn currently denies any radiation of pain and denies any neurologic symptoms. He did not have any red meat or alcohol immediately prior to the onset of his symptoms. As aspiration of about 15 mL was done in the E. R. prior to his admission. He denies any fevers or recent bacterial illness. PAST MEDICAL HISTORY: 1. Benign prostatic hypertrophy. 2. Hypertension. 3. Atrial fibrillation. PAST SURGICAL HISTORY: 1. Cholecystectomy. 2. Cervical fusion. 3. Penile implant. CURRENT MEDICATIONS: 1. Allopurinol. 2. Eliquis. 3. Atorvastatin. 4. Finasteride. 5. Lisinopril. 6. Lyrica. 7. Terazosin. 8. Tramadol. ALLERGIES: NO KNOWN DRUG ALLERGIES. SOCIAL HISTORY: He does not drink, smoke or use any illicit drugs. REVIEW OF SYSTEMS: Negative except as indicated in the History of Present Illness. PHYSICAL EXAMINATION: VITAL SIGNS: MENTAL STATUS: The patient is awake, alert, and is able to give a good history and participate in the physical. The patient is oriented to person, place and time. SKIN: Normal tone and turgor. HEENT: Normocephalic, atraumatic. Pupils equal, round and reactive. Mucosal membranes are moist. NECK: Normal range of motion. No thyromegaly, no lymphadenopathy. CHEST: Normal respiratory excursion. CARDIAC: Regular rate and rhythm. No murmurs, rubs or gallops. MUSCULOSKELETAL: Bilateral upper extremities show full active range of motion without pain. He has intact sensation. They are warm and well perfused. He has no deformities of the shoulder joint and elbows. His fingers show deformities from chronic arthritis. The left lower extremity shows no pain with range of motion of the hip, knee, ankle or digits. There is no deformity. Right lower extremity shows no pain with range of motion of the hip, however he has severe pain with flexion of the knee. He has a tense effusion and very mild increase in warmth throughout the lateral side but no erythema. Sensation is intact. It is warm and well perfused and there is no other obvious varus or valgus deformity. LABORATORY: He had a slightly elevated white count at 13.2. All other labs appear to be within normal limits. No laboratory study results are back from the synovial fluid aspirated from the knee. IMAGING: Right knee x-rays show no acute bony abnormality. ASSESSMENT: 1. Right knee pain with history of gout and history of Eliquis. PLAN: I agree with Dr. Bond on his current management with ongoing antibiotic. I will await any further lab results before we consider operative intervention. Under sterile conditions I was able to aspirate about 80 mL of fluid which should hopefully give the patient some relief from the tense effusion. We will send that from the office as well. A dose of Solu-Medrol has already been given which did help give the patient some mild relief. Additionally he has been started on Colchicine. I think an additional dose of Solu-Medrol would be reasonable and continue with the Colchicine until lab results have returned. I appreciate the consultation and helping care for this patient. We will continue to follow him. #[id number] [facility]
[2018-05-21] MEDS: PANTOPRAZOLE SODIUM TAB 40 MG PO SCH (14:04)
[2018-05-21] MEDS: levoFLOXacin 750MG IV 750 MG in PREMIX BAG 1 BAG IVPB SCH (16:19)
[2018-05-21] MEDS: VANCOMYCIN PER PHARMACY IVPB SCH (17:52)
[2018-05-21] MEDS: ATORVASTATIN 10 MG TAB PO SCH (20:44)
[2018-05-22] MEDS: PANTOPRAZOLE SODIUM TAB 40 MG PO SCH (06:11)
[2018-05-22] MEDS: SODIUM CHLORIDE 0.9% 1000ML 1,000 ML IVS PRN ×3 (06:19→23:46)
[2018-05-22] MEDS ORDERED: SODIUM CHLORIDE 0.9% 500ML 0 ML ONE (06:59)
[2018-05-22] MEDS ORDERED: VANCOMYCIN HCL INJ 1,000 MG VIAL IVPB ONE ×2 (07:01→19:05)
[2018-05-22] MEDS: levoFLOXacin 750MG IV 750 MG in PREMIX BAG 1 BAG IVPB SCH (08:01)
[2018-05-22] MEDS: COLCHICINE 0.6 MG TAB PO SCH ×2 (08:02→20:44)
[2018-05-22] MEDS: LISINOPRIL 10 MG TAB PO SCH (08:02)
[2018-05-22] MEDS: FINASTERIDE 5 MG TAB PO SCH (08:02)
[2018-05-22] MEDS: PREGABALIN 25 MG CAP PO SCH ×3 (08:02→20:44)
[2018-05-22] MEDS: hydroCHLOROthiazide 12.5 MG CAP PO SCH (08:03)
[2018-05-22] MEDS ORDERED: methylPREDNISolone SODIUM SUC 125 MG/2 ML VIAL IV ONE (08:30)
--- NOTE | 2018-05-22 09:14 | PN ---
SUPERVISING PHYSICIAN: Erlin Gonzales MD DATE: 05/22/18 SUBJECTIVE: The patient states he feels much better since the 80 mL of fluid were removed from his knee yesterday. He states he has not been out of bed, he is waiting on physical therapy to evaluate him today. OBJECTIVE: VITAL SIGNS: Blood pressure 99/63. Heart rate 53. Respiratory rate 20. Temperature 98.1. Oxygen saturation 94%. GENERAL: Mr. Conn is a 77-year-old male patient in no active distress. NEUROLOGIC: Alert and oriented. LUNGS: Clear to auscultation bilaterally. CARDIOVASCULAR: Regular rate and rhythm. Normal S1, S2. ABDOMEN: Soft, obese. Positive bowel sounds. No tenderness to palpation. EXTREMITIES: Lower extremities reveal significant edema, right knee is still a little bit edematous, but no erythema and no warmth to touch at this point. LABORATORY: Labs are reviewed. We still do not have cultures back on the fluid that was drawn. White count this morning 13.7, hemoglobin 14.0, hematocrit 42.1, platelet count 178, slight increase from yesterday when white count was 12.1, but he did receive some Solu-Medrol as well. This morning, sodium 130, potassium 3.5, chloride 98, CO2 20, BUN 24, creatinine 1.10, glucose 151, calcium 7.9. ASSESSMENT: 1. Severe right knee pain secondary to right knee septic arthritis versus acute gout flare versus hemarthrosis with inflammatory change. 2. Fever, likely secondary to #1, improved. 3. Benign prostatic hypertrophy. 4. Hypertension. 5. Atrial fibrillation on Eliquis. 6. History of Peyronie's disease. 7. Chronic gout on allopurinol. PLAN: At this point, he has had an elevation in his white count. I feel this is likely secondary to Solu-Medrol, but cannot 100% guarantee it. I still do not have any results from the fluid aspirated from the knee. He has also had a drop in his sodium and potassium and a little drop in his CO2 on his chemistry as well. Fluids were started this morning by Dr. Bond. I will continue these fluids throughout the day, continue the current antibiotics as well as treatment for the gout. Although the patient feels better, I want him to get up with physical therapy and discontinue the Salguero catheter today and see how he does. I will recheck labs in the morning. Hopefully by then, we will have some preliminaries on the fluid obtained from the knee. #[id number] [facility]ILITY[facility]asmin
[2018-05-22] MEDS: VANCOMYCIN HCL INJ 1,750 MG in SODIUM CHLORIDE 0.9% 500ML 500 ML IVPB SCH ×2 (09:15→20:44)
[2018-05-22] MEDS: TERAZOSIN 1 MG CAP PO SCH (09:16)
[2018-05-22] MEDS ORDERED: SODIUM CHLORIDE 0.9% 500ML 500 ML ONE ×2 (09:20→19:04)
[2018-05-22] MEDS: VANCOMYCIN PER PHARMACY IVPB SCH (09:36)
[2018-05-22] MEDS: ATORVASTATIN 10 MG TAB PO SCH (20:44)
[2018-05-23] MEDS: SODIUM CHLORIDE 0.9% 1000ML 1,000 ML IVS PRN (05:37)
[2018-05-23] MEDS: PANTOPRAZOLE SODIUM TAB 40 MG PO SCH (06:19)
[2018-05-23] MEDS ORDERED: SODIUM CHLORIDE 0.9% 500ML 500 ML ONE (08:36)
[2018-05-23] MEDS ORDERED: VANCOMYCIN HCL INJ 1,000 MG VIAL IVPB ONE ×2 (08:36→10:10)
[2018-05-23] MEDS ORDERED: POTASSIUM CHLORIDE 20 MEQ TAB PO ONE (08:47)
[2018-05-23] MEDS ORDERED: VANCOMYCIN HCL INJ 1,000 MG, VANCOMYCIN HCL INJ 250 MG in SODIUM CHLORIDE 0.9% 250ML 25... IVPB SCH (09:00)
[2018-05-23] MEDS ORDERED: SODIUM BICARBONATE SYRINGE 50 MEQ/50 ML SYG IV ONE (09:15)
[2018-05-23] MEDS ORDERED: LACTATED RINGERS 1,000 ML ONE (09:37)
[2018-05-23] MEDS: LISINOPRIL 10 MG TAB PO SCH (09:42)
[2018-05-23] MEDS: hydroCHLOROthiazide 12.5 MG CAP PO SCH (09:42)
[2018-05-23] MEDS: PREGABALIN 25 MG CAP PO SCH ×3 (09:42→20:42)
[2018-05-23] MEDS: TERAZOSIN 1 MG CAP PO SCH (09:42)
[2018-05-23] MEDS: FINASTERIDE 5 MG TAB PO SCH (09:42)
[2018-05-23] MEDS: COLCHICINE 0.6 MG TAB PO SCH (09:45)
[2018-05-23] MEDS: levoFLOXacin 750MG IV 750 MG in PREMIX BAG 1 BAG IVPB SCH (09:50)
[2018-05-23] MEDS ORDERED: VANCOMYCIN HCL INJ 500 MG VIAL ONE (10:10)
[2018-05-23] MEDS ORDERED: SODIUM CHLORIDE 0.9% 250ML 250 ML ONE (10:10)
[2018-05-23] MEDS: VANCOMYCIN PER PHARMACY IVPB SCH (11:40)
[2018-05-23] MEDS: SULFA/TRIMETH 800/160 (DS) TAB 1 EA TAB PO SCH (12:43)
[2018-05-23] MEDS: ALLOPURINOL 100 MG TAB PO SCH (12:43)
[2018-05-23] MEDS: traMADol HCL 50 MG TAB PO SCH ×2 (13:15→19:09)
--- NOTE | 2018-05-23 15:48 | PN ---
SUPERVISING PHYSICIAN: Erlin Gonzales MD DATE: 05/23/18 SUBJECTIVE: The patient feels better today. No pain in the knee. He participate in physical therapy yesterday and did well with this. OBJECTIVE: VITAL SIGNS: Blood pressure 118/73. Heart rate 59. Respiratory rate 18. Temperature 97.8. Oxygen saturation 98%. GENERAL: Mr. Conn is a 77-year-old male patient in no active distress at this time. NEUROLOGIC: Alert and oriented. LUNGS: Clear to auscultation bilaterally. CARDIOVASCULAR: Regular rate and rhythm. Normal S1, S2. ABDOMEN: Soft. Positive bowel sounds. GENITOURINARY: Deferred. EXTREMITIES: Lower extremities reveal significant edema. 2+ pulses. Capillary refill less than 2 seconds. LABORATORY: White count 7.4, hemoglobin 12.6, hematocrit 37.9, platelet count 171. Chemistry shows sodium 132, potassium 3.3, chloride 104, CO2 18, BUN 23, creatinine 0.87, glucose 140, calcium 6.6. Vancomycin trough was 19.2 last night. Synovial fluid for culture did not show any white cells. Final cultures are not quite available yet. ASSESSMENT: 1. Severe right knee pain secondary to right knee septic arthritis versus acute gout flare versus hemarthrosis with inflammatory changes. This appears to be going the direction of gout. 2. Fever, secondary to #1. 3. Benign prostatic hypertrophy. 4. Hypertension. 5. Atrial fibrillation on Eliquis. 6. History of Peyronie's disease. 7. Chronic gout on allopurinol. PLAN: At this time, he has an improved white count. I feel like that was probably due to the steroid. I am going to discontinue his IV antibiotics at this time. I am going to go with p.o. Bactrim. Dr. Pitt has evaluated the patient this morning and recommended Uloric as well as allopurinol. I have put the corresponding orders in the computer. I am going to continue the current IV fluids and recheck his labs in the morning. He will likely go home tomorrow. I spoke with him about this and he wants to go ahead and do physical therapy this afternoon and once in the morning before he goes to ensure that he feels stable enough to go home. #[id number] [facility]
[2018-05-23] MEDS ORDERED: ALBUTEROL SULFATE 2.5 MG/3 ML VIAL NEB SCH (16:00)
--- NOTE | 2018-05-23 18:42 | PN ---
DATE: 05/23/18 SUBJECTIVE: Mr. Conn seems to be doing really well and has no pain whatsoever. His pain has been seemingly responsive to the Colchicine and perhaps antibiotics. Given his acute onset of pain and his significant response, I think that surgery would not be warranted in his case. I have discussed this with him and his and we decided to forego that, and send him home on ongoing treatment for gout as well as p.o. antibiotics. PLAN: They are going to followup closely with me and he has been given explicit instructions to return to the Emergency Room should he have any changes in his condition. #[id number] [facility]
[2018-05-23] MEDS: IV SET AND CAP CHANGE INJ INJ SCH (19:01)
[2018-05-23] MEDS ORDERED: ARFORMOTEROL TARTRATE 15 MCG/2 ML NEB NEB SCH (20:00)
[2018-05-23] MEDS: ATORVASTATIN 10 MG TAB PO SCH (20:41)
[2018-05-24] MEDS: traMADol HCL 50 MG TAB PO SCH ×2 (01:52→07:30)
[2018-05-24] MEDS: PANTOPRAZOLE SODIUM TAB 40 MG PO SCH (06:03)
[2018-05-24] MEDS: ALLOPURINOL 100 MG TAB PO SCH (09:59)
[2018-05-24] MEDS: TERAZOSIN 1 MG CAP PO SCH (09:59)
[2018-05-24] MEDS: FINASTERIDE 5 MG TAB PO SCH (09:59)
[2018-05-24] MEDS: LISINOPRIL 10 MG TAB PO SCH (09:59)
[2018-05-24] MEDS: hydroCHLOROthiazide 12.5 MG CAP PO SCH (09:59)
[2018-05-24] MEDS: PREGABALIN 25 MG CAP PO SCH (09:59)
[2018-05-24] MEDS: SULFA/TRIMETH 800/160 (DS) TAB 1 EA TAB PO SCH ×2 (10:00)
[2018-05-24 10:33] VITALS: BP 122/62; TEMP 98; O2SAT 98
--- NOTE | 2018-05-25 11:19 | DS ---
SUPERVISING PHYSICIAN: Erlin Gonzales MD ADMISSION DIAGNOSIS: 1. Severe right knee pain, right knee septic arthritis versus acute gout flare versus hemarthrosis with inflammatory changes. 2. Fever, likely related to #1. 3. Chronic benign prostatic hypertrophy. 4. Hypertension. 5. Chronic atrial fibrillation on Eliquis. 6. History of Peyronie's disease. 7. Chronic gout on allopurinol. DISCHARGE DIAGNOSIS: 1. Continued right knee pain, likely due to gout, with continued antibiotic coverage with the patient showing improvement after initiation of treatment. 2. Fever, secondary to #1, resolved. 3. Benign prostatic hypertrophy. 4. Hypertension. 5. Atrial fibrillation with controlled ventricular rate on Eliquis. 6. History of Peyronie's disease. 7. Chronic gout on allopurinol. CONSULTATION: Orthopedic services, Dr. Pitt, assessment being right knee pain with a history of gout and history of Eliquis. Please see Dr. Pitt's report for full details. REASON FOR HOSPITALIZATION: The patient is a 77 year-old male who presented to the E. R. with his daughter after having an acute onset of right knee pain in the middle of the night approximately 0230. He tried to walk to the restroom at that time and could hardly move because of the right knee pain. Throughout the rest of the morning the pain got worse to the point where he could not bear weight or hardly bend the knee without severe pain. He denies any fever or chills throughout the night or this morning. The patient denies any accidental fall, tripping, or any trauma to the right knee. Of significance, he is being treated for chronic atrial fibrillation with Eliquis. He has never had a problem with joint pains quite like this in the past. He does have a history of gout currently on Allopurinol, and he denies ever having any gout attack in his knees. Workup in the E. R. consisted of a white blood cell count that is mildly elevated at 13.2 with a normal hemoglobin and hematocrit. The right knee was aspirated by the E. R. doctor and per verbal report the doctor endorsed that the aspirate was a dark brown, watery consistency. No overt purulence could be seen or found and no bright red blood was found either. He sent this for culture and started the patient on vancomycin and Levaquin at approximately 5:00 PM. Hospitalist was called for admission for observation while awaiting synovial fluid cultures. LABORATORY: White count initially 13.2, at discharge was 7,400. Hemoglobin and hematocrit were stable at 12.6 and 37.9. Platelet count 171,000. Differential did show a resolving left shift. ESR was elevated at 46. Chemistries initially showed a sodium 134, discharge 132, potassium 3.3. Calcium 6.6 at discharge, however, for a total protein of 2.9 corrected to 7.8. C-reactive protein was 21. Liver functions were within normal limits. BUN 23, creatinine 0.87. Urinalysis showed a trace intact blood. Otherwise, within normal limits. Synovial cell count and crystals showed no crystals and cell count showed total enucleated cell count was 73,053. Neutrophil percentage was 95% with leukocytes 2% and monocytes/macrophage 3%. Fluid was noted to be red and hazy. MICROBIOLOGY: Blood cultures negative initially after 4 days. Synovial fluid culture results were pending, but showing no growth after 36 hours and 3 days with final report pending at discharge. HOSPITAL COURSE: Mr. Conn was admitted as noted on 05/20/18 for questionable septic arthritis versus gout. He was treated with both antibiotics and anti- inflammatories and did show good improvement which indicated probable symptoms were due to gout, however, could not completely rule out infectious process. The patient was showing good clinical response to treatment. Dr. Pitt was consulted in regards to the knee. Please see his notes for full details. On the morning of discharge, the patient was afebrile and had good resolution of his symptoms. He was clinically improving and felt clinically well enough to be discharged to continue with outpatient management. PLAN: Mr. Conn was discharged with instructions to followup with Dr. Pitt as scheduled on 05/29/18 at 10:30 AM and then to followup with Dr. Banks the same day at 1500. He was instructed to take his medications as directed and told to return to the hospital should he have any worsening swelling, redness, pain or other concerning symptoms. Diet at discharge was diet as instructed, regular diet as tolerated. Activity to keep the leg elevated while at rest and to fully weight-bear, but no strenuous exercise until see in Dr. Pitt's office on Tuesday. NEW MEDICATIONS AT DISCHARGE: 1. Uloric 40 mg daily, #14, samples provided from the clinic. 2. Antibiotic coverage with Bactrim DS 1 q.12h., #20, to be refilled by Dr. Pitt or Dr. Banks depending on clinical response to treatment. All other medications prior to hospitalization were continued includin. Stefanie D 1 tablet daily. 2. Tramadol 50 mg as needed. 3. Hytrin 5 mg a day. 4. Lyrica 50 mg t.i.d. 5. Nasonex use as directed. 6. Lisinopril/hydrochlorothiazide 10-12.5 1 daily. 7. Proscar 5 mg daily. 8. Lipitor 10 mg daily. 9. Eliquis 5 mg b.i.d. CONDITION AT DISCHARGE: Stable and improving. DISPOSITION: The patient was discharged to care of family. #[id number] [facility]
== END 2018-05-24 12:05 | disposition home or self-care (01) ==
LOC: ER 13:48 → MS 17:45 → INTOOBSV 17:45
PROVIDERS: ADMIT Family Medicine; ATTEND Nurse Practitioner Family
DX: M25.561 Pain in right knee (principal); M10.061 Idiopathic gout, right knee; M25.461 Effusion, right knee; R50.81 Fever presenting with conditions classified elsewhere; D72.829 Elevated white blood cell count, unspecified; I10 Essential (primary) hypertension; I48.2 Chronic atrial fibrillation; N40.0 Benign prostatic hyperplasia without lower urinary tract symptoms; N48.6 Induration penis plastica; Z66 Do not resuscitate; Z79.01 Long term (current) use of anticoagulants; Z79.899 Other long term (current) drug therapy; Z87.891 Personal history of nicotine dependence; Z90.49 Acquired absence of other specified parts of digestive tract; Z98.1 Arthrodesis status
CPT/HCPCS: 20610; 96361; 96366 ×3; 96367; 96365; 96375 ×3; 96376 ×5; J1956 ×4; J2930 ×2; J2270 ×4; J7040 ×6; J7030 ×4; J7050 ×2; J3370 ×9; 89051; 80048 ×3; 89060; 80053; 82040; 36415 ×5; 84550; 81001; 86140; 85025 ×3; 87040 ×2; 87070 ×2; 87205 ×2; 85651; 80202 ×2; 84560; 73560; 97530 ×2; 97116 ×5; G8978; G8979; 97162; 99285; G0378

== ENCOUNTER → 2018-06-07 | Outpatient (CLI) | payer MEDICARE | LOC: GMAE 11:23 | PROVIDERS: ATTEND Family Medicine | DX: M10.9 Gout, unspecified (principal) ==

== ENCOUNTER → 2018-10-31 | Outpatient (CLI) | payer MEDICARE | LOC: GMAE 11:34 | PROVIDERS: ATTEND Family Medicine | DX: I10 Essential (primary) hypertension (principal); Z12.5 Encounter for screening for malignant neoplasm of prostate; E78.2 Mixed hyperlipidemia | CPT/HCPCS: 84443; G0103 ==

== ENCOUNTER → 2019-05-29 | Outpatient (CLI) | payer MEDICARE ==
--- NOTE | 2019-05-29 08:45 | RAD ---
EXAM DESCRIPTION: Pelvis, single view CLINICAL HISTORY: HIP PAIN FINDINGS/ IMPRESSION: Mild osteoarthritis lateral hip joints. Osteopenia. No fracture. No lytic or blastic bony lesion of the visualized proximal femora or the pelvis. Mild osteoarthritis sacroiliac joints and pubic symphysis. Penile prosthesis. Visualized bowel gas is normal Electronically signed by: Brandon Villela MD 05/29/2019 8:44 AM CDT
--- NOTE | 2019-05-29 08:47 | RAD ---
EXAM DESCRIPTION: Knee,Left Complete CLINICAL HISTORY: 78 years Male, KNEE PAIN TECHNIQUE: 4 views of the right knee were performed. COMPARISON: None available. FINDINGS: The visualized bones appear well mineralized. No acute fracture or dislocation. 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 Small suprapatellar joint effusion. The soft tissues appear grossly unremarkable. 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 Small suprapatellar joint effusion. Electronically signed by: Arleen Wynn MD 05/29/2019 8:46 AM CDT
== END ==
LOC: RAD 08:05
PROVIDERS: ATTEND Orthopaedic Surgery
DX: M17.12 Unilateral primary osteoarthritis, left knee (principal); M16.0 Bilateral primary osteoarthritis of hip; M85.88 Other specified disorders of bone density and structure, other site; Z96.0 Presence of urogenital implants

== ENCOUNTER → 2019-10-15 | Outpatient (CLI) | payer MEDICARE ==
--- NOTE | 2019-10-15 13:41 | RAD ---
EXAM DESCRIPTION: Pelvis x-ray one view CLINICAL HISTORY: 79 years Male, HIP PAIN RIGHT COMPARISON: Previous pelvic x-ray May 29, 2019 FINDINGS: Bones appear osteopenic or osteoporotic. [place] in the left pelvis for penile prosthesis which is partly visualized below. No pelvic fracture or hip fracture is evident. Advanced degenerative changes lower lumbar spine with leftward scoliosis partly visualized. IMPRESSION: No acute process in the pelvis. See above. Electronically signed by: Sukhjinder Flores MD 10/15/2019 1:39 PM CDT
--- NOTE | 2019-10-15 13:43 | RAD ---
EXAM DESCRIPTION: Hip,Right 2 Views CLINICAL HISTORY: 79 years, Male, PAIN IN RIGHT HIP COMPARISON: None TECHNIQUE: AP and frog leg lateral views of the hip FINDINGS: 2 x-ray views of the right hip reveal no fracture or dislocation. No lytic bone lesion. Mild to moderate degenerative narrowing of the right hip joint. Bones appear osteopenic or osteoporotic. Penile prosthesis is present. IMPRESSION: Negative for fracture or dislocation. Electronically signed by: Sukhjinder Flores MD 10/15/2019 1:41 PM CDT
== END ==
LOC: RAD 09:19
PROVIDERS: ATTEND Orthopaedic Surgery
DX: M25.551 Pain in right hip (principal)